=== PATIENT | female | born 1945 ===

== ENCOUNTER 2016-08-14 16:35 | Observation (INO) | payer MEDICARE, OTHER ==
--- NOTE | ~2016-08-14 | CN ---
Consultation Report [facility] [address] [place]. [address] NAME: LUIZ KNAPP : 47 STATUS : ADM John Paul PAT#: [id number] AGE: 70 ADM/REG DATE : 08/14/16 MR#: [id number] REPORT SERV DATE: 08/15/16 DICTATED BY: LATA DUGAN DATE: 08/15/16 REPORT STATUS : Draft TRANSCRIBED BY: MODL DATE: 08/15/16 NEUROLOGY CONSULTATION DATE OF CONSULTATION: 08/15/2016 REASON FOR CONSULTATION: Dizziness, near syncope. HOSPITALIST: Dr. Constantine Jama. HISTORY OF PRESENT ILLNESS: The patient is a 70-year-old female, who states that she woke up yesterday feeling "dizzy". When asked to describe this specifically, she stated that she had a funny feeling in the back of her head. She mentioned that she has never had this feeling before. She did not feel like she was going to pass out, rather she felt this weird sensation in the back of her head. When questioned if she had had any nausea or vomiting recently, she stated that she had nausea and vomiting last week, but this week she has been able to keep down fluids. She denies any vertiginous symptoms. She denies any imbalance. She denies any loss or changes of vision. She denies any weakness or numbness in the extremities. She denies any ataxia. PAST MEDICAL HISTORY: Hypertension, GERD, COPD, tobacco abuse, degenerative joint disease, osteoarthritis, and osteoporosis. PAST SURGICAL HISTORY: Appendectomy, cholecystectomy, total abdominal hysterectomy with BSO, tubal ligation, hernia repair. HOME MEDICATIONS: List consists of verapamil 80 mg twice a day. ALLERGIES: KEFLEX. SOCIAL HISTORY: The patient is . She has multiple grand children that live with her. She has four children. Her son nineteen years ago. She is a smoker x16 years. She does not drink alcohol or use illicits. FAMILY HISTORY: The patient's mother at the age of ninety, she had CHF, hypertension, and diabetes. Her father at age of 83. She has seven siblings. Causes of her father's are unknown. REVIEW OF SYSTEMS: Please refer to HPI for pertinent positives. PHYSICAL EXAMINATION: GENERAL: The patient is a 70-year-old female, who stands 5 feet 6 inches tall and weighs 145 pounds. VITAL SIGNS: She is afebrile. Heart rate 75, respiratory rate 18, O2 saturations on room Consultation Report [place] [id number] [facility] [address] [place]. [address] NAME: LUIZ KNAPP : 47 STATUS : ADM John Paul PAT#: [id number] AGE: 70 ADM/REG DATE : 08/14/16 MR#: [id number] REPORT SERV DATE: 08/15/16 DICTATED BY: LATA DUGAN DATE: 08/15/16 REPORT STATUS : Draft TRANSCRIBED BY: MODLynda DATE: 08/15/16 air 96%, blood pressure is 182/81. NEURO: The patient is alert. She is oriented x4. She communicates appropriately. Pupils are 3 mm, PERRLA. Cranial nerves II through XII are intact. No ataxia with [id number]. She can move all extremities x4. There is no pronator drift. Upper extremity strength is 4/5 bilaterally. There are no sensory deficits. Upper DTRs are 2+ bilaterally. Lower extremity strength is 4/5 bilaterally. No sensory deficits. Lower DTRs are 2+ bilaterally. Downgoing toes. NECK: No carotid bruits, JVD, or thyromegaly. CHEST: Lung sounds are clear. CARDIAC: Regular rate and rhythm. There is a grade 1/6 diastolic murmur. LABORATORY DATA: CBC shows a white count of 12.2, otherwise normal BMP, relatively normal. Alkaline phos 135, ammonia 37, BNP 217. Troponins negative x3. MRI of the brain, no acute changes. MRA of the head and neck shows 70% stenosis of the left ICA distally at the top of the carotid siphon. Negative MRA of the neck. Chest x-ray, patchy right middle lobe opacities, questionable pneumonia. Echocardiogram, LVEF 50%, [id number] aortic regurgitation. No thrombus. ASSESSMENT/PLAN: Probable transient ischemic attack. The patient will be placed on aspirin 81 mg daily. She will also be placed on Plavix 75 mg daily, because of the 70% stenosis at the distally at the top of the left carotid siphon. She is also being placed on Lipitor 40 mg daily at bedtime for transient ischemic attack/stroke prevention. The patient states that, she does not want to take the Lipitor. It was highly encouraged to prevent stroke in the future. The mechanism and purpose for the Lipitor was explained to the patient in detail, again she refused. The patient also refused to take DVT prophylaxis while here in the hospital. Risk factor reduction was taught to the patient, especially hypertension and smoking cessation. Thank you for including us in consultation. ALICJA/TYRONE Lata Dugan [facility]- / [id number] CC: Constantine Jama Jr, MD Jasmine Carson, N.P.
--- NOTE | ~2016-08-14 | HP ---
History And Physical [facility] [address] [facility] [address] [place]. [address] NAME: LUIZ KNAPP : 47 STATUS : ADM John Paul PAT#: [id number] AGE: 70 ADM/REG DATE : 08/14/16 MR#: [id number] REPORT SERV DATE: 08/15/16 DICTATED BY: MARY KATE SPAIN DATE: 08/14/16 REPORT STATUS : Draft TRANSCRIBED BY: MODLynda DATE: 08/14/16 DATE OF ADMISSION: 08/14/2016 CHIEF COMPLAINT: Dizziness with lightheadedness and near syncope starting this morning. HISTORY OF PRESENT ILLNESS: This is a very pleasant 70-year-old female. She does not have any significant past medical history except for history of hypertension, history of GERD, COPD, tobacco abuse, history of degenerative joint disease, osteoarthritis, and osteoporosis, presenting today to [facility] accompanied with her daughter with complaints of dizziness, lightheadedness, and near syncope starting this morning. The patient has been in her usual state of health yesterday, but this morning she woke up, she has been extremely dizzy. She did not have any headache, but she felt like she had a "funny" sensation on the back of her head and she felt extremely dizzy, lightheaded, and near syncopal. She did not have any syncopal episode nor chest pain or shortness of breath, no PND or orthopnea. She did not have any productive cough. No fever. No abdominal pain. No nausea, vomiting. No diarrhea or constipation. She has not had any increased urinary frequency or urgency. No hematemesis or melena. No hematochezia. No other complaints. The patient in fact took three aspirin after this dizziness started, it improved some, but she still has been dizzy, and as a result because she was so weak and so unsteady, she decided to come to [facility]. She has been evaluated in the emergency room, and the Hospitalist Service has been asked for admission, further evaluation, and treatment. PAST MEDICAL HISTORY: Significant for hypertension, COPD, tobacco abuse, GERD, history of degenerative joint disease, osteoarthritis, osteoporosis. PAST SURGICAL HISTORY: Includes appendectomy, cholecystectomy, hysterectomy, tubal ligation, and hernia repair. SOCIAL HISTORY: She is a smoker for 16 years. She smokes one pack a day. No alcohol. No IV drugs. ALLERGIES: SHE IS ALLERGIC TO KEFLEX. MEDICATIONS AT HOME: Include verapamil. REVIEW OF SYSTEMS: A 14-point review of system has been obtained and pertinent positive has been listed into the history of present illness. Otherwise, negative except those underlying above. OBJECTIVE: VITAL SIGNS: On arrival, she was afebrile, blood pressure 190/86, heart rate 83, respiratory rate 16, saturating 97% on room air. GENERAL: She is a very pleasant, well-developed, well-nourished female, in no acute distress. She is alert and oriented x3. Nonfocal. She follows all her commands appropriately. HEENT: Show pupils equal, round, reactive to light. Extraocular movements intact. No JVD. No lymphadenopathy. No thyromegaly appreciated. History And Physical [address] [address] NAME: LUIZ KNAPP : 47 STATUS : ADM John Paul PAT#: [id number] AGE: 70 ADM/REG DATE : 08/14/16 MR#: [id number] REPORT SERV DATE: 08/15/16 DICTATED BY: MARY KATE SPAIN DATE: 08/14/16 REPORT STATUS : Draft TRANSCRIBED BY: TYRONE DATE: 08/14/16 CHEST EVAL: Shows bilateral air entry. Clear anteroposterior. No wheezes, crackles, or rhonchi appreciated. CARDIOVASCULAR: She has regular rate and rhythm. S1, S2 positive. No S3, no S4. No murmurs, rubs, or gallops appreciated. ABDOMEN: Soft with positive bowel sounds. Nontender. No guarding. No rebound. EXTREMITIES: No clubbing, cyanosis, or edema. NEUROLOGIC: The patient is alert and oriented x3. She is nonfocal. She moves all her extremities. She follows all her commands appropriately. Cranial nerves are intact. LABORATORY DATA: Labs from today performed in the emergency room shows sodium 138, potassium 4.5, chloride 101, CO2 of 32, BUN 20, creatinine 1.02, glucose is 107. Her troponin I is less than 0.02. Tylenol is less than 2. Salicylate 12.9. Alcohol less than 3. Her white count is 11.9, hemoglobin 13.1, hematocrit 38.6, and platelets are 270. INR is 1.1. The patient's UA has been negative. EKG shows normal sinus rhythm. Chest x-ray, PA and lateral, does not show any acute cardiopulmonary abnormalities. Brain CT without contrast shows no acute intracranial abnormality, calcific atherosclerosis. ASSESSMENT: This is a 70-year-old female with: 1. New-onset dizziness and near syncope. 2. Hypertension, uncontrolled. 3. History of chronic obstructive pulmonary disease with tobacco abuse. 4. History of gastroesophageal reflux disease. 5. Degenerative joint disease, osteoarthritis, osteoporosis. PLAN: 1. The patient is going to be admitted for observation. We are going to perform frequent neuro checks. Order an MRI of the brain, 2D echo, and carotid ultrasound. Rule her for OK by serial cardiac enzymes and serial EKG. Hydrate her. We are going to check her orthostatics. Check a TSH and a free T4. We will check a liver function test as well. Consult Neurology for further recommendation. 2. Hypertension. Continue verapamil and provide p.r.n. hydralazine as needed. 3. COPD with tobacco abuse. Nebulizers p.r.n. Aggressive tobacco cessation education has been provided to the patient as well. 4. Degenerative joint disease, osteoarthritis, osteoporosis. Symptomatic treatment. We will provide reasonable pain and nausea control as well as GI and DVT prophylaxis. That has been discussed extensively with the patient as well as the patient's family. All the questions have been answered in full. Further workup and recommendation pending above. It is worthwhile to note that the patient is going to be followed up by Dr. Constantine Jama. CF/TYRONE Mary Kate Spain M.D. History And Physical [address] [address] NAME: LUIZ KNAPP : 47 STATUS : ADM John Paul PAT#: [id number] AGE: 70 ADM/REG DATE : 08/14/16 MR#: [id number] REPORT SERV DATE: 08/15/16 DICTATED BY: MARY KATE SPAIN DATE: 08/14/16 REPORT STATUS : Draft TRANSCRIBED BY: MARGARETL DATE: 08/14/16 / [id number] CC: Constantine Jama Jr, MD
--- NOTE | ~2016-08-14 | DS ---
Discharge Summary [facility] [address] [place]. [address] NAME: LUIZ KNAPP : 47 STATUS : DIS John Paul PAT#: [id number] AGE: 70 ADM/REG DATE : 08/14/16 MR#: [id number] REPORT SERV DATE: 08/16/16 DICTATED BY: JR. JAMA WILLIAM JOHN DATE: 08/15/16 REPORT STATUS : Draft TRANSCRIBED BY: TYRONE DATE: 08/15/16 ADMISSION DATE: 08/14/2016 DISCHARGE DATE: 08/15/2016 DISCHARGE DIAGNOSES: Include: 1. Transient ischemic attack. 2. Presyncope. 3. Hypertension. 4. Chronic obstructive pulmonary disease without exacerbation. 5. Gastroesophageal reflux disease. 6. Degenerative joint disease. OPERATIONS/PROCEDURES AND TREATMENTS: Include: 1. PA and lateral chest x-ray done 08/14/2016 which showed patchy right middle lobe opacity possibly representing early infiltrate. 2. CT of the brain without contrast showed no acute intracranial abnormalities with calcified atherosclerotic disease. 3. Carotid blood flow study done 08/15/2016 which showed right and left carotid normal. The right vertebral had antegrade flow. The left vertebral with antegrade flow. 4. Echocardiogram done 08/15/2016 showed borderline left ventricular systolic function with an ejection fraction of 50% with mild diastolic dysfunction. There was normal right ventricular chamber size and systolic function and mild to moderate aortic regurgitation. 5. MRI of the brain done 08/15/2016 showed minimal chronic small vessel disease, otherwise normal. There was 70% stenosis of left internal carotid artery distally to the top of the siphon. 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 There was negative MRA of the neck. CONSULTING PHYSICIAN: Dr. Saleh of Neurology. DISCHARGE MEDICATIONS: Include: 1. Aspirin 81 mg orally daily. 2. Folate 1 mg orally daily. 3. Multivitamin tablet orally daily. 4. Thiamin 100 mg orally daily. 5. Verapamil 80 mg orally twice a day. 6. Plavix 75 mg orally daily. 7. Lipitor 40 mg orally daily. HOSPITAL COURSE: The patient was a very pleasant 70-year-old white female, presented to the emergency room with complaint of dizziness, lightheadedness, and near syncope. The patient was apparently in her usual state of health and will awaken extremely dizzy. She did not have a headache. She did have a "funny" sensation in the back of her head and felt dizzy. She described this she could not further delineate this as presyncope, vertigo, or what she means by dizziness is just a "funny feeling." On initial exam in the emergency room, she was afebrile. Blood pressure 190/86, heart rate 83, respiratory rate of 16, and saturation Discharge Summary [address] [address] NAME: LUIZ KNAPP : 47 STATUS : DIS John Paul PAT#: [id number] AGE: 70 ADM/REG DATE : 08/14/16 MR#: [id number] REPORT SERV DATE: 08/16/16 DICTATED BY: JR. JAMA WILLIAM JOHN DATE: 08/15/16 REPORT STATUS : Draft TRANSCRIBED BY: TYRONE DATE: 08/15/16 97% on room air. Exam was largely unremarkable. Laboratory was unremarkable. The patient was admitted to the hospital. She was placed in the Clinical Decision Unit. She subsequently underwent an extensive workup including orthostatic vital signs which showed a supine blood pressure of 161/64, heart rate 75, sitting blood pressure 159/71, heart rate 59, standing blood pressure I158/72, and heart rate 77. She had carotid flow study, echocardiogram, MRI of the brain, MRA of the neck and head, all of which are detailed above. She was then seen and evaluated by Neurology. She did have some carotid stenosis. However, this is non-intervenable due to location. She was therefore thought to have a transient ischemic attack and was placed on Plavix and aspirin and will have a fasting lipid profile study which will be sent to her primary care physician. The patient will be discharged home today 08/15/2016 in good condition and will follow up. DIET: Will be regular. ACTIVITY: As tolerated. She will follow up with her primary care physician in one to two weeks. For discharge exam and laboratory, please see daily progress note. WISHA/TYRONE Constantine Jama Jr, MD / [id number] CC: Constantine Jama Jr, MD Jasmine Carson, N.P.
[~2016-08-14 16:35] MED LIST: IBU-200200 MG PO; TUMSROLL PO
[2016-08-14 16:58] LABS: BASOPHILS 0.3 %; BASOPHILS ABSOLUTE 0.03 10/3/uL (0.0-0.16); EOSINOPHILS 1.3 %; EOSINOPHILS ABSOLUTE 0.15 10/3/uL (0.0-0.53); HEMATOCRIT 38.6 % (36.0-48.0); HEMOGLOBIN 13.1 g/dL (12.0-16.0); IMMATURE GRANULOCYTES 0.3 %; IMMATURE GRANULOCYTES ABSOLUTE 0.03 10/3/uL (0.0-0.11); LYMPHOCYTES 25.6 %; LYMPHOCYTES ABSOLUTE 3.04 10/3/uL (0.67-4.30); MEAN CORPUS HGB CONC 33.9 g/dL (32.0-36.0); MEAN PLATELET VOLUME 9.7 fL (9.2-13.0); MONOCYTES ABSOLUTE 1.19 10/3/uL (0.21-1.20); NEUTROPHILS 62.5 %; NEUTROPHILS ABSOLUTE 7.45 10/3/uL (2.02-8.40); PLATELET COUNT 270 10/3/uL (150-400); RBC DISTRIBUTION WIDTH 14.3 % (12.0-16.0); RED CELL COUNT 4.36 10/6/uL (4.0-5.6); WHITE BLOOD CELLS 11.9 10/3/uL (4.5-10.5)
[2016-08-14 16:59] LABS: MANUAL DIFF NO %; MEAN CORPUSCULAR VOLUME 88.5 fL (80-100)
[2016-08-14 17:03] LABS: ASCORBIC ACID (UR NOT ORDER) NEG (NEG); BILIRUBIN, URINE NEGATIVE (NEG); ER URINALYSIS TAT 0 Hrs 09 Mins; KETONE, URINE NEGATIVE (NEG); LEUKOCYTE ESTERASE(NOT OR NEG (NEG); NITRITE (URINE) NEG (NEG); WBC (NOT ORDERED) (RFLEX) < 1 (0-5)
[2016-08-14 17:15] LABS: CALCIUM, SERUM 8.9 MG/DL (8.5-10.4); CHEST PAIN PROFILE TAT 0 Hrs 21 Mins; CHLORIDE, SERUM 101 MMOL/L (96-112); CREATININE 1.02 MG/DL (0.55-1.02); GFR AFRICAN AMERICAN 65 ML/MIN (>=60); GFR NON AFRICAN AMERICAN 56 ML/MIN (>=60); GLUCOSE, SERUM 107 MG/DL (60-99); POTASSIUM, SERUM 4.5 MMOL/L (3.5-5.3); SODIUM, SERUM 138 MMOL/L (135-148); TROPONIN I <0.02 NG/ML (<0.05)
[2016-08-14 17:16] LABS: BUN (BLOOD UREA NITROGEN) 20 MG/DL (6-23); CO2 (CARBON DIOXIDE) 32 MMOL/L (24-34)
[2016-08-14 17:17] LABS: INTERNATIONAL NORMAL RATI 1.1 UNITS (-); PROTIME (NOT ORD) 14.3 SEC (12.0-14.5)
[2016-08-14 17:36] LABS: SALICYLATE 12.9 MG/DL (-)
[2016-08-14 17:37] LABS: ACETAMINOPHEN LEVEL (TYLENOL) < 2.0 MCG/ML (10.0-20.0); ALCOHOL < 3 MG/DL (0)
[2016-08-14] MEDS ORDERED: CALAN80 MG PO (18:58)
[2016-08-14 22:28] LABS: AMPHETAMINES (NOT ORD) NEG (NEG); BARBITURATES (NOT ORDERED NEG (NEG); BENZODIAZEPINES (NOT ORD) NEG (NEG); CANNABINOIDS (THC) NEG (NEG); COCAINE (NOT ORDERED) NEG (NEG); OPIATES NEG (NEG); PHENCYCLIDINE(PCP) NEG (NEG); TRICYCLICS NEG (NEG)
[2016-08-14 22:38] LABS: FREE T4 1.14 NG/DL (0.76-1.46); PHOSPHORUS, SERUM 3.5 MG/DL (2.5-4.5)
[2016-08-15 01:35] LABS: CPK 81 U/L (0-200); TROPONIN I <0.02 NG/ML (<0.05)
[2016-08-15 01:36] LABS: CK-MB 2.3 NG/ML
[2016-08-15 03:24] LABS: BASOPHILS 0.2 %; BASOPHILS ABSOLUTE 0.03 10/3/uL (0.0-0.16); EOSINOPHILS ABSOLUTE 0.24 10/3/uL (0.0-0.53); HEMOGLOBIN 12.7 g/dL (12.0-16.0); IMMATURE GRANULOCYTES 0.2 %; IMMATURE GRANULOCYTES ABSOLUTE 0.03 10/3/uL (0.0-0.11); LYMPHOCYTES 30.4 %; LYMPHOCYTES ABSOLUTE 3.71 10/3/uL (0.67-4.30); MANUAL DIFF NO %; MEAN CORPUS HGB CONC 33.4 g/dL (32.0-36.0); MEAN CORPUSCULAR HEMOGLOB 29.7 pg (26.0-34.0); MEAN CORPUSCULAR VOLUME 88.8 fL (80-100); MEAN PLATELET VOLUME 10.3 fL (9.2-13.0); MONOCYTES 9.8 %; NEUTROPHILS 57.4 %; NEUTROPHILS ABSOLUTE 6.98 10/3/uL (2.02-8.40); PLATELET COUNT 287 10/3/uL (150-400); RBC DISTRIBUTION WIDTH 14.2 % (12.0-16.0); RED CELL COUNT 4.28 10/6/uL (4.0-5.6); WHITE BLOOD CELLS 12.2 10/3/uL (4.5-10.5)
[2016-08-15 03:40] LABS: BUN (BLOOD UREA NITROGEN) 19 MG/DL (6-23); CALCIUM, SERUM 8.6 MG/DL (8.5-10.4); CHLORIDE, SERUM 108 MMOL/L (96-112); CO2 (CARBON DIOXIDE) 30 MMOL/L (24-34); CREATININE 0.83 MG/DL (0.55-1.02); GFR AFRICAN AMERICAN 83 ML/MIN (>=60); GFR NON AFRICAN AMERICAN 72 ML/MIN (>=60); POTASSIUM, SERUM 4.9 MMOL/L (3.5-5.3); SGOT(AST) 6 U/L (5-40); SGPT(ALT) 24 U/L (5-65); SODIUM, SERUM 144 MMOL/L (135-148); TOTAL BILIRUBIN 0.2 MG/DL (0-1.2); TOTAL PROTEIN 6.6 G/DL (6.0-8.5)
[2016-08-15 03:44] LABS: A/G RATIO 0.7 (0.7-1.9); ALBUMIN 2.8 G/DL (3.5-5.0); ALKALINE PHOSPHATASE 135 U/L (45-117); DIRECT BILIRUBIN < 0.1 MG/DL (0.0-0.4); GLOBULIN 3.8 G/DL (2.5-4.1); GLUCOSE, SERUM 85 MG/DL (60-99); INDIRECT BILIRUBIN(NOT ORDER) 0.1 MG/DL (0.1-0.9)
[2016-08-15 03:55] LABS: B NATRIURETIC PEPTIDE (BNP) 217.4 PG/ML (< 100.0)
[2016-08-15 07:31] LABS: GLYCOHEMOGLOBIN (HbA1c) 6.1 % (4.7-6.1)
[2016-08-15 09:16] LABS: CK-MB 2.4 NG/ML; CPK 78 U/L (0-200); TROPONIN I <0.02 NG/ML (<0.05)
[2016-08-15] MEDS ORDERED: LIPITOR40 PO (16:58)
[2016-08-15] MEDS ORDERED: PLAVIX PO (16:58)
[2016-08-15] MEDS ORDERED: ASAB PO (16:58)
[2016-08-15] MEDS ORDERED: PRIN20 PO (16:58)
[2016-08-15 17:07] LABS: CHOL/HDL RATIO(NOT ORDER) 3.1 (0-5); CHOLESTEROL 134 MG/DL (< 200); HDL CHOLESTEROL 43 MG/DL (> 49); LDL CHOLESTEROL 74 MG/DL (< 130); NON-HDL CHOLESTEROL 91 MG/DL (< 160); TRIGLYCERIDE 88 MG/DL (< 150)
[2016-08-15] MEDS ORDERED: FOLIC PO (17:34)
[2016-08-15] MEDS ORDERED: MULTIPLE VIT (17:34)
[2016-08-15] MEDS ORDERED: B1100 PO (17:35)
[2016-08-15 18:08] LABS: CK-MB 1.9 NG/ML; CPK 77 U/L (0-200); TROPONIN I <0.02 NG/ML (<0.05)
== END 2016-08-15 18:42 | disposition home or self-care (01) ==
LOC: ER 16:35 → CDU1 19:38
PROVIDERS: Emergency Medicine; Internal Medicine
DX: G45.9 Transient cerebral ischemic attack, unspecified (principal); I10 Essential (primary) hypertension; J44.9 Chronic obstructive pulmonary disease, unspecified; K21.9 Gastro-esophageal reflux disease without esophagitis; M19.90 Unspecified osteoarthritis, unspecified site; M81.0 Age-related osteoporosis without current pathological fracture; Z90.49 Acquired absence of other specified parts of digestive tract; Z90.710 Acquired absence of both cervix and uterus; Z98.51 Tubal ligation status; Z98.890 Other specified postprocedural states; F17.210 Nicotine dependence, cigarettes, uncomplicated; Z88.8 Allergy status to other drugs, medicaments and biological substances; Z79.899 Other long term (current) drug therapy; Z79.82 Long term (current) use of aspirin
CPT/HCPCS: 70450; 70544; 70548; 70551; 71020; 80048; 80053; 80061; 80305; 80307; 81001; 82140; 82248; 82550; 82553; 83036; 83615; 83735; 83880; 84100; 84439; 84443; 84484; 85025; 85610; 85730; 93005; 93880; 96372; 99285; A9270-GY; A9577; C8929; G0378; Q9957